=== PATIENT | male | born 1955 | race Caucasian/White ===

== ENCOUNTER → 2016-11-25 | Outpatient (CLI) | payer BC ==
[2016-11-25 07:15] LABS: Aty Lym Flag Slight; CH 32.2; CHCM 33.9; HCT 44.9 % (39.0-53.0); HDW 2.56; HGB 15.3 gm/dL (13.0-17.5); MCH 32.5 pg (25.0-35.0); MCHC 34.1 g/dL (31.0-37.0); MCV 95.4 fL (80.0-100.0); Mean Platelet Volume 7.2; RDW 13.3 % (11.5-15.5); WBC 5.7 k/uL (3.8-10.6); WBC (Perox) 5.68
[2016-11-25 07:50] LABS: ALT 76 U/L (21-72); AST 66 U/L (17-59); Alkaline Phosphatase 71 U/L (38-126); Anion Gap 10 mmol/L; Blood Urea Nitrogen 20 mg/dL (9-20); Calcium 9.6 mg/dL (8.4-10.2); Carbon Dioxide 25 mmol/L (22-30); Chloride 108 mmol/L (98-107); Glucose 94 mg/dL (74-99); Non-African American GFR(MDRD) >60 (>60 ml/min/1.73 sqM); Potassium 4.2 mmol/L (3.5-5.1); Sodium 143 mmol/L (137-145); Total Bilirubin 0.7 mg/dL (0.2-1.3); Total Protein 7.1 g/dL (6.3-8.2)
[2016-11-25 08:06] LABS: Add Differential Manual Differential
[2016-11-25 08:08] LABS: Nucleated Red Blood Cells 0 /100 WBC (0-0); Total Cells Counted 100
[2016-11-25 08:09] LABS: Manual Review Performed
[2016-11-25 08:10] LABS: RBC Morphology Normal
[2016-11-25 14:03] LABS: Hemoglobin A1C 5.6 % (4.2-6.1)
== END | disposition home or self-care (01) ==
LOC: LABWHC1 06:35
PROVIDERS: ATTEND Family Medicine
DX: R73.01 Impaired fasting glucose (principal); R94.5 Abnormal results of liver function studies; I35.8 Other nonrheumatic aortic valve disorders
CPT/HCPCS: 36415; 80053; 83036; 85025

== ENCOUNTER → 2017-11-03 | Outpatient (CLI) | payer BC ==
[2017-11-03 07:54] LABS: Cholesterol 147 mg/dL (<200); HDL Cholesterol 59 mg/dL (40-60); LDL Cholesterol,Calculated 50 mg/dL (0-99); Triglycerides 192 mg/dL (<150)
== END | disposition home or self-care (01) ==
LOC: LABWHC1 06:35
PROVIDERS: ATTEND Family Medicine
DX: E78.2 Mixed hyperlipidemia (principal); M15.8 Other polyosteoarthritis
CPT/HCPCS: 36415; 80061

== ENCOUNTER → 2018-06-08 | Outpatient (CLI) | payer BC ==
[2018-06-08 08:02] LABS: Basophils % (A) 1 %; Eosinophils # (A) 0.1 k/uL (0-0.7); Eosinophils % (A) 2 %; HCT 46.3 % (39.0-53.0); HGB 15.7 gm/dL (13.0-17.5); Lymphocytes # (A) 1.8 k/uL (1.0-4.8); Lymphocytes % (A) 37 %; MCH 31.9 pg (25.0-35.0); MCV 93.7 fL (80.0-100.0); Mean Platelet Volume 7.5; Monocytes # (A) 0.4 k/uL (0-1.0); Monocytes % (A) 9 %; Neutrophils # (A) 2.4 k/uL (1.3-7.7); Neutrophils % (A) 48 %; Platelet Count 148 k/uL (150-450); RBC 4.93 m/uL (4.30-5.90)
[2018-06-08 12:07] LABS: Albumin 4.3 g/dL (3.80-4.90); Albumin/Globulin Ratio 2.26 (1.20-2.10); Anion Gap 6.1 mmol/L (4.00-12.00); Calcium 9.6 mg/dL (8.7-10.3); Carbon Dioxide 26.9 mmol/L (21.6-31.8); Globulin 1.9 g/dL (2.1-3.7); LDL Cholesterol,Calculated 48.6 mg/dL (0.0-131.0); Potassium 4.2 mmol/L (3.5-5.5); Total Bilirubin 0.8 mg/dL (0.2-1.2); Total Protein 6.2 g/dL (6.2-8.2); VLDL Calculation 42.4 mg/dL (5.00-40.00)
[2018-06-08 12:14] LABS: T4, Free (Free Thyroxine) 1.2 ng/dL (0.80-1.80)
== END | disposition home or self-care (01) ==
LOC: LABWHC1 06:37
PROVIDERS: ATTEND Family Medicine
DX: Z00.00 Encounter for general adult medical examination without abnormal findings (principal); E78.5 Hyperlipidemia, unspecified; I10 Essential (primary) hypertension; Z79.899 Other long term (current) drug therapy
CPT/HCPCS: 36415; 80053; 80061; 84153; 84439; 84443; 85025

== ENCOUNTER → 2018-07-19 | Outpatient (CLI) | payer BC ==
[2018-07-19 20:29] LABS: ALT 121 U/L (10-49); AST 59 U/L (14-35); Alkaline Phosphatase 57 U/L (41-126); Bilirubin, Conjugated <0.20 mg/dL (0.20-0.40); Total Bilirubin 0.4 mg/dL (0.2-1.2); Total Protein 6.4 g/dL (6.2-8.2)
== END | disposition home or self-care (01) ==
LOC: LABWHC1 13:06
PROVIDERS: ATTEND Family Medicine
DX: R94.5 Abnormal results of liver function studies (principal)
CPT/HCPCS: 36415; 80076

== ENCOUNTER → 2018-09-15 | Outpatient (CLI) | payer BC ==
--- NOTE | 2018-09-15 08:14 | US ---
EXAMINATION TYPE: US liver DATE OF EXAM: 09/15/2018 COMPARISON: CT 03/04/2016 CLINICAL HISTORY: R94.5 Abnormal Liver Function Tests. abn labs. Patient states he sometimes have RU Q pain. NPO. EXAM MEASUREMENTS: Liver Length: 15.9 cm Gallbladder Wall: 0.2 cm CHD: 0.3 cm Right Kidney: 12.1 x 4.9 x 5.4 cm Pancreas: Obscured by bowel gas Liver: Appears coarse in appearance. Gallbladder: wnl Evidence for sonographic Pena's sign: neg CBD: Obscured by overlying bowel gas CHD: wnl Right Kidney: wnl There is no ascites. IMPRESSION: Findings could be indicative of hepatic steatosis.
== END ==
LOC: RADUSWWP 07:22
PROVIDERS: ATTEND Family Medicine
DX: R94.5 Abnormal results of liver function studies (principal)
CPT/HCPCS: 76705

== ENCOUNTER → 2018-11-30 | Outpatient (CLI) | payer BC ==
[2018-11-30 16:33] LABS: Albumin 4.4 g/dL (3.80-4.90); Albumin/Globulin Ratio 2.32 (1.60-3.17); Bilirubin, Conjugated 0.2 mg/dL (0.20-0.40); Bilirubin,Unconjugated 0.4 mg/dL; Globulin 1.9 g/dL (1.6-3.3); Total Bilirubin 0.6 mg/dL (0.3-1.2); Total Protein 6.3 g/dL (6.2-8.2)
[2018-11-30 16:54] LABS: Hepatitis B Surface AB- Quant 3.5 mIU/mL; Hepatitis C IgG Antibody Non-Reactive (Non-Reactive)
[2018-12-01 13:11] LABS: Ceruloplasmin 20.4 mg/dL (20.0-60.0)
== END | disposition home or self-care (01) ==
LOC: LABWHC1 07:31
DX: K76.0 Fatty (change of) liver, not elsewhere classified (principal)
CPT/HCPCS: 36415; 80076; 81596; 82103; 82390; 82728; 86038; 86706; 86803

== ENCOUNTER → 2019-05-23 | Outpatient (CLI) | payer BC ==
[2019-05-23 11:16] LABS: Albumin 4.4 g/dL (3.80-4.90); Albumin/Globulin Ratio 2.44 (1.60-3.17); Bilirubin, Conjugated 0.3 mg/dL (0.20-0.40); Bilirubin,Unconjugated 0.6 mg/dL; Globulin 1.8 g/dL (1.6-3.3); Total Bilirubin 0.9 mg/dL (0.3-1.2); Total Protein 6.2 g/dL (6.2-8.2)
== END | disposition home or self-care (01) ==
LOC: LABWHC1 07:26
PROVIDERS: ATTEND Internal Medicine
DX: R74.8 Abnormal levels of other serum enzymes (principal)
CPT/HCPCS: 36415; 80076

== ENCOUNTER 2019-05-24 12:28 | Emergency (ER) | payer BC ==
[2019-05-24 12:39] VITALS: TEMP 98.2
[2019-05-24] MEDS ORDERED: KETOROLAC 60 MG/2 ML VIAL IM STA (14:06)
--- NOTE | 2019-05-24 15:00 | XR ---
Lumbar spine HISTORY: Pain 3 views of the lumbar spine, 3 views of the thoracic spine There is multilevel spondylosis. Loss of disc height is present at the intervertebral levels. Scleros is present in the posterior elements of the lumbar spine is compatible with facet arthropathy. Lumbar vertebral bodies show preserved height. Bone mineralization maintained. There is anterolisthesis gra de 1 L5-S1. Vacuum phenomenon present at intervertebral levels L4-5 and L5-S1. Thoracic spine shows multilevel spondylosis. Thoracic vertebral bodies show preserved height and alig nment. Some loss of disc height present at the intervertebral levels. Degenerative disc changes also noted in the cervical spine. Aorta is dense and tortuous. Impression: Degenerative disc disease, facet arthropathy, anterolisthesis grade 1 L5-S1,
--- NOTE | 2019-05-24 15:22 | ED ---
Back Pain HPI - General Chief Complaint: Back Pain/Injury Stated Complaint: back pain Time Seen by Provider: 05/24/19 12:34 Source: patient Limitations: no limitations - History of Present Illness Initial Comments: She is a 67-year-old male with past medical history of hypertension who presents emergency Department with reported low back pain. He states that on Tuesday he was lifting a heavy planter when he developed mid to low back pain and felt a pop in his mid back. States the pain ran across his low back. He as been taking Tylenol at home which only mildly improves his symptoms. States the pain is worse with moving and better with rest. He denies any saddle anesthesia or bowel or bladder incontinence. No dysuria, hematuria or retention. Denies melanotic stools or hematochezia. Denies any chest pain or shortness of breath. No fevers or chills. No history of IV drug use. No weakness in his lower extremities. Denies ripping or tearing sensation. There are no other alleviating, precipitating or modifying factors - Related Data Home Medications Medication Instructions Recorded Confirmed Atorvastatin Calcium [Lipitor] 20 mg PO DAILY 03/04/16 03/04/16 Bisoprol/Hydrochlorothiazide [Ziac 1 each PO DAILY 03/04/16 03/04/16 10-6.25 MG] Naproxen 500 mg PO Q12HR 03/04/16 03/04/16 Previous Rx's Medication Instructions Recorded Hydrocodone/Acetaminophen [[place] 1 each PO Q6HR PRN #20 tab 03/04/16 5-325] Ibuprofen [Motrin] 800 mg PO Q6HR PRN #20 tab 03/04/16 Tamsulosin HCl [Flomax] 0.4 mg PO DAILY #7 cap 03/04/16 Hydrocodone/Acetaminophen [[place] 1 tab PO Q6HR PRN #12 tab 05/24/19 5-325] Ibuprofen [Motrin] 400 mg PO Q8HR PRN #30 tab 05/24/19 Allergies Allergy/AdvReac Type Severity Reaction Status Date / Time Penicillins Allergy Swelling Verified 05/24/19 12:38 Review of Systems ROS Statement: Those systems with pertinent positive or pertinent negative responses have been documented in the HPI. ROS Other: All systems not noted in ROS Statement are negative. Past Medical History Past Medical History: Hyperlipidemia, Hypertension Additional Past Medical History / Comment(s): kidney stone, hernia History of Any Multi-Drug Resistant Organisms: None Reported Past Surgical History: Orthopedic Surgery Past Psychological History: No Psychological Hx Reported Smoking Status: Never smoker Past Alcohol Use History: Occasional Past Drug Use History: None Reported General Exam Limitations: no limitations General appearance: alert, in no apparent distress Head exam: Present: atraumatic, normocephalic, normal inspection Eye exam: Present: normal appearance, PERRL, EOMI. Absent: scleral icterus, conjunctival injection, periorbital swelling ENT exam: Present: normal exam, mucous membranes moist Neck exam: Present: normal inspection. Absent: tenderness, meningismus, lymp hadenopathy Respiratory exam: Present: normal lung sounds bilaterally. Absent: respiratory distress, wheezes, rales, rhonchi, stridor Cardiovascular Exam: Present: regular rate, normal rhythm, normal heart sounds. Absent: systolic murmur, diastolic murmur, rubs, gallop, clicks GI/Abdominal exam: Present: soft, normal bowel sounds. Absent: distended, tenderness, guarding, rebound, rigid Extremities exam: Present: normal inspection, full ROM (in all 4 extremities), normal capillary refill. Absent: tenderness, pedal edema, joint swelling, calf tenderness Back exam: Present: tenderness (T10-L2 tender to palpate the paraspinal muscles. No spinous process tenderness. Reflexes in the lower extremities intact. ) Neurological exam: Present: alert, oriented X3, CN II-XII intact Psychiatric exam: Present: normal affect, normal mood Skin exam: Present: warm, dry, intact, normal color. Absent: rash Course Vital Signs 05/24/19 05/24/19 12:36 15:25 Temperature 98.2 F 98.2 F Pulse Rate 59 L 53 L Respiratory 20 18 Rate Blood Pressure 154/87 122/83 O2 Sat by Pulse 99 98 Oximetry Medical Decision Making - Medical Decision Making Upon arrival the patient was placed in room 23. I did discuss diagnosis, differential and treatment options. The patient has no concerning signs for cauda equina. No history of cancer. I did recommend x-ray of the patient's thoracic and lumbar spine. I did provide him with a shot of Toradol IM. Her demonstrates general disc disease with facet arthropathy and anterior listhesis grade 1 L5-S1. I reevaluated the patient and he does have improvement in his pain with the Toradol. I did recommend follow-up with his primary care physician. I will provide the patient with prescription for Motrin and [place]. He does sign an opioids start talking form. Side effect profile is discussed. He is to follow-up with his primary care physician in 2-4 days. I also discussed return parameters. Patient was in agreement with the treatment plan and was discharged home in stable condition Disposition Clinical Impression: Back pain Disposition: HOME SELF-CARE Condition: Stable Instructions (If sedation given, give patient instructions): Acute Low Back Pain (ED) Additional Instructions: Please follow up with your primary care doctor in 2-4 days. Return to the emergency room for any new worsening symptoms Prescriptions: Ibuprofen [Motrin] 400 mg PO Q8HR PRN #30 tab PRN Reason: Pain Hydrocodone/Acetaminophen [[place] 5-325] 1 tab PO Q6HR PRN #12 tab PRN Reason: Pain Is patient prescribed a controlled substance at d/c from ED?: Yes When asked, does pt state using other controlled substances?: No If prescribed controlled substance>3 days was MAPS reviewed?: Prescribed <3 Days If opioid is for acute pain is fill amount 7 days or less?: Yes If Rx opioid, was Start Talking consent form obtained?: Yes Referrals: Gurwinder Petty MD [Primary Care Provider] - 1-2 days Time of Disposition: 15:22
[2019-05-24 15:30] VITALS: BP 122/83; PULSE 53; RESP 18
== END 2019-05-24 15:25 | disposition home or self-care (01) ==
LOC: EC 12:28
DX: M54.5 Low back pain (principal); M54.6 Pain in thoracic spine; M51.37 Other intervertebral disc degeneration, lumbosacral region; M43.17 Spondylolisthesis, lumbosacral region; M46.97 Unspecified inflammatory spondylopathy, lumbosacral region; E78.5 Hyperlipidemia, unspecified; I10 Essential (primary) hypertension; Z88.0 Allergy status to penicillin; Z79.1 Long term (current) use of non-steroidal anti-inflammatories (NSAID); Z79.899 Other long term (current) drug therapy; X50.0XXA Overexertion from strenuous movement or load, initial encounter
CPT/HCPCS: 99283; 96372; 72072; 72100; J1885

== ENCOUNTER → 2019-06-12 | Outpatient (CLI) | payer BC ==
[2019-06-12 12:32] LABS: Basophils # (A) 0.1 k/uL (0-0.2); Basophils % (A) 0 %; Eosinophils # (A) 0.1 k/uL (0-0.7); Eosinophils % (A) 1 %; HGB 15.9 gm/dL (13.0-17.5); Lymphocytes # (A) 2.6 k/uL (1.0-4.8); Lymphocytes % (A) 25 %; MCH 31.5 pg (25.0-35.0); MCHC 33.8 g/dL (31.0-37.0); MCV 92.9 fL (80.0-100.0); Mean Platelet Volume 7.1; Monocytes # (A) 0.7 k/uL (0-1.0); Monocytes % (A) 7 %; Neutrophils # (A) 6.7 k/uL (1.3-7.7); Neutrophils % (A) 65 %; Platelet Count 202 k/uL (150-450); RBC 5.05 m/uL (4.30-5.90); RDW 13.5 % (11.5-15.5); WBC 10.4 k/uL (3.8-10.6)
[2019-06-12 15:40] LABS: Protein, Total 6.1 g/dL (6.2-8.2)
[2019-06-14 09:24] LABS: Albumin 3.72 g/dL (3.80-4.90); Gamma Globulin 0.6 g/dL (0.70-1.50)
== END | disposition home or self-care (01) ==
LOC: LABWHC1 11:38
PROVIDERS: ATTEND Physical Medicine & Rehabilitation
DX: M54.5 Low back pain (principal); M51.36 Other intervertebral disc degeneration, lumbar region; M47.817 Spondylosis without myelopathy or radiculopathy, lumbosacral region
CPT/HCPCS: 36415; 84165; 85025

== ENCOUNTER → 2020-05-14 | Outpatient (CLI) | payer BC ==
[2020-05-14 08:42] LABS: Basophils % (A) 1 %; Eosinophils # (A) 0.1 k/uL (0-0.7); Eosinophils % (A) 1 %; HCT 44.5 % (39.0-53.0); HGB 14.8 gm/dL (13.0-17.5); Lymphocytes # (A) 2.3 k/uL (1.0-4.8); Lymphocytes % (A) 37 %; MCH 30.3 pg (25.0-35.0); MCHC 33.2 g/dL (31.0-37.0); MCV 91.3 fL (80.0-100.0); Mean Platelet Volume 7.3; Monocytes # (A) 0.5 k/uL (0-1.0); Monocytes % (A) 9 %; Neutrophils % (A) 49 %; Platelet Count 189 k/uL (150-450); RBC 4.87 m/uL (4.30-5.90); RDW 13.6 % (11.5-15.5); WBC 6.2 k/uL (3.8-10.6)
[2020-05-14 15:09] LABS: African American GFR (CKD) 109.4 (60.0-200.0); Albumin 4.2 g/dL (3.80-4.90); Albumin/Globulin Ratio 2.21 (1.60-3.17); Anion Gap 7.4 mmol/L (4.00-12.00); Carbon Dioxide 26.6 mmol/L (21.6-31.8); Globulin 1.9 g/dL (1.6-3.3); Non-African American GFR(CKD) 94.4 (60.0-200.0); Potassium 3.9 mmol/L (3.5-5.5); Total Bilirubin 0.6 mg/dL (0.2-1.2); Total Protein 6.1 g/dL (6.2-8.2)
== END | disposition home or self-care (01) ==
LOC: LABWHC1 07:17
PROVIDERS: ATTEND Internal Medicine
DX: K76.0 Fatty (change of) liver, not elsewhere classified (principal)
CPT/HCPCS: 36415; 80053; 85025

== ENCOUNTER → 2020-11-11 | Outpatient (CLI) | payer BC ==
[2020-11-11 11:19] LABS: Basophils # (A) 0.04 X 10*3/uL (0.00-0.10); Basophils % (A) 0.7 %; Eosinophils # (A) 0.08 X 10*3/uL (0.04-0.35); Eosinophils % (A) 1.3 %; HCT 44.3 % (39.6-50.0); HGB 14.8 g/dL (13.0-17.0); Lymphocytes % (A) 29.5 %; MCH 30.7 pg (27.0-32.0); MCHC 33.4 g/dL (32.0-37.0); MCV 91.9 fL (80.0-97.0); Mean Platelet Volume 10.4 fL (9.5-12.2); Monocytes # (A) 0.68 X 10*3/uL (0.20-1.00); Monocytes % (A) 11.1 %; Neutrophils # (A) 3.48 X 10*3/uL (1.80-7.70); Neutrophils % (A) 57.1 %; Platelet Count 198 X 10*3/uL (140-440); RBC 4.82 X 10*6/uL (4.40-5.60); RDW 13.2 % (11.5-14.5)
[2020-11-11 12:08] LABS: Erythrocyte Sedimentation Rate 7 mm/Hr (0-20)
[2020-11-11 20:18] LABS: ALT 44 U/L (10-49); AST 30 U/L (14-35); African American GFR (CKD) 109.4 (60.0-200.0); Albumin/Globulin Ratio 2.25 (1.60-3.17); Alkaline Phosphatase 84 U/L (41-126); BUN/Creat Ratio 13.75 Ratio (12.00-20.00); C Reactive Protein <0.4 mg/dL (0.0-0.8); Calcium 9.7 mg/dL (8.7-10.3); Carbon Dioxide 26.3 mmol/L (21.6-31.8); Chloride 108 mmol/L (96-109); Chol/HDL Ratio 4.24; Cholesterol 140 mg/dL (0-200); Glucose 136 mg/dL (70-110); LDL Cholesterol,Calculated 83.2 mg/dL (0.0-131.0); Non-African American GFR(CKD) 94.4 (60.0-200.0); Potassium 4.1 mmol/L (3.5-5.5); Prostate Specific Antigen 2.5 ng/mL (0.0-4.5); Rheumatoid Factor, Qnt 6 IU/mL (0-15); Sodium 143 mmol/L (135-145); Total Bilirubin 1.4 mg/dL (0.3-1.2); Total Protein 6.5 g/dL (6.2-8.2)
== END | disposition home or self-care (01) ==
LOC: LABWHC1 07:07
PROVIDERS: ATTEND Family Medicine
DX: Z00.00 Encounter for general adult medical examination without abnormal findings (principal); M15.8 Other polyosteoarthritis
CPT/HCPCS: 36415; 80053; 80061; 84153; 84443; 85025; 85652; 86038; 86140; 86431

== ENCOUNTER → 2021-05-14 | Outpatient (CLI) | payer MEDICARE, BC ==
[2021-05-14 11:24] LABS: Basophils # (A) 0.06 X 10*3/uL (0.00-0.10); Basophils % (A) 0.9 %; Eosinophils # (A) 0.16 X 10*3/uL (0.04-0.35); Eosinophils % (A) 2.4 %; HCT 46.3 % (39.6-50.0); HGB 15.4 g/dL (13.0-17.0); Lymphocytes # (A) 2.11 X 10*3/uL (0.90-5.00); Lymphocytes % (A) 31.1 %; MCH 30.5 pg (27.0-32.0); MCHC 33.3 g/dL (32.0-37.0); MCV 91.7 fL (80.0-97.0); Mean Platelet Volume 10.3 fL (9.5-12.2); Monocytes # (A) 0.71 X 10*3/uL (0.20-1.00); Monocytes % (A) 10.5 %; Neutrophils # (A) 3.72 X 10*3/uL (1.80-7.70); Neutrophils % (A) 54.8 %; Platelet Count 204 X 10*3/uL (140-440); RBC 5.05 X 10*6/uL (4.40-5.60); RDW 13.4 % (11.5-14.5); WBC 6.78 X 10*3/uL (4.50-10.00)
[2021-05-14 14:00] LABS: African American GFR (CKD) 108.6 (60.0-200.0); Albumin 4.3 g/dL (3.8-4.9); Albumin/Globulin Ratio 1.87 (1.60-3.17); Anion Gap 11.4 mmol/L (4.00-12.00); BUN/Creat Ratio 14.5 Ratio (12.00-20.00); Blood Urea Nitrogen 11.6 mg/dL (9.0-27.0); Calcium 10.1 mg/dL (8.7-10.3); Carbon Dioxide 23.6 mmol/L (21.6-31.8); Globulin 2.3 g/dL (1.6-3.3); Non-African American GFR(CKD) 93.7 (60.0-200.0); Potassium 4.8 mmol/L (3.5-5.5); Total Bilirubin 0.9 mg/dL (0.30-1.20); Total Protein 6.6 g/dL (6.2-8.2)
== END | disposition home or self-care (01) ==
LOC: LABWHC1 07:18
PROVIDERS: ATTEND Internal Medicine
DX: K76.0 Fatty (change of) liver, not elsewhere classified (principal)
CPT/HCPCS: 36415; 80053; 85025

== ENCOUNTER → 2021-09-23 | Outpatient (CLI) | payer MEDICARE, BC ==
[2021-09-23 13:59] LABS: Basophils # (A) 0.04 X 10*3/uL (0.00-0.10); Basophils % (A) 0.5 %; Eosinophils # (A) 0.11 X 10*3/uL (0.04-0.35); Eosinophils % (A) 1.4 %; HCT 45.1 % (39.6-50.0); HGB 14.8 g/dL (13.0-17.0); Immature Grans, Automated 0.3 %; Lymphocytes # (A) 2.25 X 10*3/uL (0.90-5.00); Lymphocytes % (A) 29.3 %; MCH 30.6 pg (27.0-32.0); MCHC 32.8 g/dL (32.0-37.0); MCV 93.2 fL (80.0-97.0); Mean Platelet Volume 10.4 fL (9.5-12.2); Monocytes # (A) 0.83 X 10*3/uL (0.20-1.00); Monocytes % (A) 10.8 %; NRBC Per 100 WBC 0 /100 WBCS (0.0-0.0); Neutrophils # (A) 4.42 X 10*3/uL (1.80-7.70); Neutrophils % (A) 57.7 %; Platelet Count 205 X 10*3/uL (140-440); RBC 4.84 X 10*6/uL (4.40-5.60); RDW 13.3 % (11.5-14.5); WBC 7.67 X 10*3/uL (4.50-10.00)
[2021-09-23 14:24] LABS: Anion Gap 10.8 mmol/L (10.00-18.00); Carbon Dioxide 24.2 mmol/L (20.0-27.5)
== END | disposition home or self-care (01) ==
LOC: LABPAT 07:31
PROVIDERS: ATTEND Orthopaedic Surgery Hand Surgery
DX: G56.01 Carpal tunnel syndrome, right upper limb (principal)
CPT/HCPCS: 36415; 80051; 85025; 93005

== ENCOUNTER → 2021-12-02 | Outpatient (CLI) | payer MEDICARE, BC ==
[2021-12-02 14:43] LABS: Basophils # (A) 0.04 X 10*3/uL (0.00-0.10); Basophils % (A) 0.8 %; Eosinophils # (A) 0.09 X 10*3/uL (0.04-0.35); Eosinophils % (A) 1.7 %; HCT 42.8 % (39.6-50.0); HGB 14.1 g/dL (13.0-17.0); Immature Grans, Automated 0.2 %; Lymphocytes # (A) 1.62 X 10*3/uL (0.90-5.00); Lymphocytes % (A) 31.1 %; MCH 30.8 pg (27.0-32.0); MCHC 32.9 g/dL (32.0-37.0); MCV 93.4 fL (80.0-97.0); Mean Platelet Volume 10.5 fL (9.5-12.2); Monocytes # (A) 0.56 X 10*3/uL (0.20-1.00); Monocytes % (A) 10.7 %; NRBC Per 100 WBC 0 /100 WBCS (0.0-0.0); Neutrophils # (A) 2.89 X 10*3/uL (1.80-7.70); Neutrophils % (A) 55.5 %; Platelet Count 201 X 10*3/uL (140-440); RBC 4.58 X 10*6/uL (4.40-5.60); RDW 13.6 % (11.5-14.5); WBC 5.21 X 10*3/uL (4.50-10.00)
[2021-12-02 14:52] LABS: ALT 43 U/L (10-49); AST 26 U/L (14-35); African American GFR (CKD) 110.4 (60.0-200.0); Albumin 4.3 g/dL (3.8-4.9); Albumin/Globulin Ratio 2.13 (1.60-3.17); Alkaline Phosphatase 64 U/L (41-126); BUN/Creat Ratio 12.36 Ratio (12.00-20.00); Blood Urea Nitrogen 9.5 mg/dL (9.0-27.0); Calcium 9.7 mg/dL (8.7-10.3); Carbon Dioxide 23.3 mmol/L (20.0-27.5); Chloride 109 mmol/L (96-109); Chol/HDL Ratio 3.25 Ratio; Glucose 112 mg/dL (70-110); LDL Cholesterol,Calculated 72.2 mg/dL (0.0-131.0); Non-African American GFR(CKD) 95.2 (60.0-200.0); Potassium 4.4 mmol/L (3.5-5.5); Sodium 143 mmol/L (135-145); Total Protein 6.3 g/dL (6.2-8.2); VLDL Calculation 17.12 mg/dL (5.00-40.00)
== END | disposition home or self-care (01) ==
LOC: LABWHC1 08:18
PROVIDERS: ATTEND Family Medicine
DX: Z00.00 Encounter for general adult medical examination without abnormal findings (principal); Z12.5 Encounter for screening for malignant neoplasm of prostate; I10 Essential (primary) hypertension; E78.2 Mixed hyperlipidemia; R00.0 Tachycardia, unspecified
CPT/HCPCS: 36415; 80053; 80061; 84153; 84443; 85025

== ENCOUNTER 2023-09-25 06:02 | Emergency (ER) | payer MEDICARE, BC ==
[2023-09-25 06:35] VITALS: TEMP 98.3
--- NOTE | 2023-09-25 06:36 | ED ---
Abdominal Pain HPI - General Chief Complaint: Abdominal Pain Stated Complaint: head ringing abd pain blood in urine Time Seen by Provider: 09/25/23 06:15 Source: patient, RN notes reviewed Mode of arrival: ambulatory Limitations: no limitations - History of Present Illness Initial Comments: This is a 68-year-old male who presents to the emergency department for abdominal pain. States that this is in the right lower quadrant and started early this morning. Also states that he may have blood in his urine. Denies any radiation of pain into the back or nausea/vomiting. Reports passing a 9mm kidney stone several years ago. Additionally, over the last week he has had ringing in both of his ears and states that his head feels full, but is not painful. Denies any visual changes. Reports mild muffled hearing, but denies any ear pain. Denies any dizziness or difficulty with ambulation. MD Complaint: abdominal pain - Related Data Home Medications Medication Instructions Recorded Confirmed Atorvastatin Calcium [Lipitor] 80 mg PO DAILY 03/04/16 10/07/21 Bisoprolol/Hydrochlorothiazide 1 each PO DAILY 03/04/16 10/07/21 [Ziac 10-6.25 MG] Celecoxib [CeleBREX] 200 mg PO DAILY 09/30/21 10/07/21 Colchicine 0.6 mg PO DAILY 09/30/21 10/07/21 Multivitamins, Thera [Multivitamin 1 tab PO DAILY 09/30/21 10/07/21 (formulary)] [place]-3 Fatty Acids/Fish Oil [Fish 1 each PO DAILY 09/30/21 10/07/21 Oil 1,000 mg Softgel] lisinopriL [Zestril] 20 mg PO DAILY 09/30/21 10/07/21 traMADol-ACETAMINOP 37.5-325MG 1 tab PO Q6HR PRN 09/30/21 10/07/21 [Ultracet] Previous Rx's Medication Instructions Recorded Fluticasone Nasal [place] [Flonase 2 spray EA NOSTRIL DAILY #16 gm 09/25/23 Nasal [place]] Ketorolac [Toradol] 10 mg PO Q6HR PRN #15 tab 09/25/23 Sulfamethox-Tmp 800-160Mg [Bactrim 1 tab PO Q12HR 7 Days #14 tab 09/25/23 DS 800-160 mg] Tamsulosin [Flomax] 0.4 mg PO DAILY #10 cap 09/25/23 Allergies Allergy/AdvReac Type Severity Reaction Status Date / Time Penicillins Allergy Swelling Verified 09/25/23 06:13 Review of Systems ROS Statement: Those systems with pertinent positive or pertinent negative responses have been documented in the HPI. ROS Other: All systems not noted in ROS Statement are negative. Past Medical History Past Medical History: Hyperlipidemia, Hypertension, Osteoarthritis (OA), Seizure Disorder Additional Past Medical History / Comment(s): fell & hit head as 6 y.o., took seizure med for awhile, but not for several years, hx. kidney stone, umb. hernia, gout, numbness right hand, cervical problems C5-C6 History of Any Multi-Drug Resistant Organisms: None Reported Past Surgical History: Orthopedic Surgery, Tonsillectomy Additional Past Surgical History / Comment(s): hand surg related to work injury, right rotator cuff repair, colonoscopy Past Anesthesia/Blood Transfusion Reactions: No Reported Reaction Past Psychological History: No Psychological Hx Reported Smoking Status: Former smoker Past Alcohol Use History: None Reported Past Drug Use History: Marijuana - Past Family History Father Additional Family Medical History / Comment(s): of 2019 General Exam Limitations: no limitations General appearance: alert, in no apparent distress Head exam: Present: atraumatic, normocephalic, normal inspection ENT exam: Present: other (Minor fluid behind the bilateral TMs. There is no bulging or erythema.) Respiratory exam: Present: normal lung sounds bilaterally. Absent: respiratory distress, wheezes, rales, rhonchi, stridor Cardiovascular Exam: Present: regular rate, normal rhythm, normal heart sounds. Absent: systolic murmur, diastolic murmur, rubs, gallop, clicks GI/Abdominal exam: Present: soft, tenderness (RLQ), normal bowel sounds. Absent: distended Neurological exam: Present: alert, oriented X3, CN II-XII intact Psychiatric exam: Present: normal affect, normal mood Skin exam: Present: warm, dry, intact, normal color. Absent: rash Course Vital Signs 09/25/23 09/25/23 09/25/23 06:10 06:58 08:06 Temperature 98.3 F Pulse Rate 89 53 L 58 L Respiratory 18 16 16 Rate Blood Pressure 159/105 149/72 134/75 O2 Sat by Pulse 98 100 98 Oximetry 03/24/24 09:30 Temperature Pulse Rate 75 Respiratory 16 Rate Blood Pressure 136/65 O2 Sat by Pulse 98 Oximetry Medical Decision Making - Medical Decision Making This is a 68 year old male who presents to the emergency department for abdominal pain. Was pt. sent in by a medical professional or institution? @ -No Did you speak to anyone other than the patient for history? @ -No Did you review nursing and triage notes? @ -Yes, and I agree, it is accurate with regards to the patient's symptoms. Were old charts reviewed? @ -No Differential Diagnosis? @ -Differential Abdominal Pain Men: Appendicitis, cholecystitis, diverticulosis, ischemic bowel, pancreatitis, hepatitis, UTI, gastroenteritis, AAA, incarcerated hernia, bowel obstruction, constipation, inflammatory bowel, hepatitis, peptic ulcer disease, splenic infarction, perforated viscus, testicular torsion, this is not meant to be an all-inclusive list EKG interpreted by me (3pts min.)? @ -Not obtained X-rays interpreted by me (1pt min.)? @ -Not obtained CT interpreted by me (1pt min.)? @ -CT scan of the abdomen and pelvis obtained. My interpretation identifies a right ureteral calculus. U/S interpreted by me (1pt. min.)? @ -Not obtained What testing was considered but not performed? (CT, X-rays, U/S, labs)? Why? @ -None What meds were considered but not given? Why? @ -None Did you discuss the management of the patient with other professionals? @ -No Did you reconcile home meds? @ -No Was smoking cessation discussed for >3mins.? @ -No Was critical care preformed (if so, how long)? @ -No Were there social determinants of health that impacted care today? How? (Homelessness, low income, unemployed, alcoholism, drug addiction, transportation, low edu. Level, literacy, decrease access to med. care, nursing home, rehab)? @ -No Was there de-escalation of care discussed even if they declined? (Discuss DNR or withdrawal of care, Hospice)? @ -No What co-morbidities impacted this encounter? (DM, HTN, Smoking, COPD, CAD, Cancer, CVA, Hep., AIDS, mental health diagnosis, sleep apnea, morbid obesity)? @ -HLD, HTN Was patient admitted / discharged? @ -Discharged. Lab work unremarkable. COVID, influenza, and RSV testing were negative. Urinalysis demonstrates blood with rare bacteria and some elevated white blood cells. Urine sent for culture. CT scan of the abdomen and pelvis obtained demonstrating a 5.3 mm obstructing calculus in the right UVJ resulting in moderate right hydronephrosis and hydroureter. Pain was well-controlled in the emergency department. Discussed with the patient that the cause of his tinnitus is not entirely clear. Denies any aspirin use. He did appear to have some fluid behind his TMs on exam. However, there was no bulging or erythema to suggest infection, and he denied any ear pain. Discussed the possibility of eustachian tube dysfunction contributing to tinnitus. He was given a prescription for Flonase nasal spray to see if that offers any benefit to his symptoms, however I otherwise advised he discuss this concern with his primary care provider. Prescription for Toradol and Flomax provided with dosing instructions reviewed for the ureter stone. He was also started on Bactrim for possible associated infection. Information for urology follow-up provided. He is advised to contact them for a follow-up appointment. Patient discharged home in stable condition. Undiagnosed new problem with uncertain prognosis? @ -None Drug Therapy requiring intensive monitoring for toxicity (Heparin, Nitro, Insulin, Cardizem)? @ -None Were any procedures done? @ -None Diagnosis/symptom? @ -Ureteral calclulus, hydronephrosis, tinnitus Acute, or Chronic, or Acute on Chronic? @ -Acute Uncomplicated (without systemic symptoms) or Complicated (systemic symptoms)? @ -Uncomplicated Side effects of treatment? @ -None Exacerbation, Progression, or Severe Exacerbation] @ -Not applicable Poses a threat to life or bodily function? @ -No Return precautions reviewed in depth, the patient is instructed to return to the emergency department with any new, worsening, or concerning symptoms. Patient verbalized understanding. This case was discussed in detail with the attending ED physician, Dr. Padilla. Presentation, findings, and treatment plan discussed in detail as well. - Lab Data Result diagrams: 09/25/23 06:46 09/25/23 06:46 Lab Results 09/25/23 09/25/23 09/25/23 Range/Units 06:30 06:46 06:46 WBC 7.6 (3.8-10.6) k/uL RBC 5.14 (4.30-5.90) m/uL Hgb 15.8 (13.0-17.5) gm/dL Hct 48.0 (39.0-53.0) % MCV 93.4 (80.0-100.0) fL MCH 30.7 (25.0-35.0) pg MCHC 32.9 (31.0-37.0) g/dL RDW 13.0 (11.5-15.5) % Plt Count 205 (150-450) k/uL MPV 7.6 Neutrophils % 59 % Lymphocytes % 29 % Monocytes % 7 % Eosinophils % 1 % Basophils % 1 % Neutrophils # 4.4 (1.3-7.7) k/uL Lymphocytes # 2.2 (1.0-4.8) k/uL Monocytes # 0.6 (0-1.0) k/uL Eosinophils # 0.1 (0-0.7) k/uL Basophils # 0.1 (0-0.2) k/uL Sodium 140 (137-145) mmol/L Potassium 4.0 (3.5-5.1) mmol/L Chloride 110 H (98-107) mmol/L Carbon Dioxide 18 L (22-30) mmol/L Anion Gap 12 mmol/L BUN 11 (9-20) mg/dL Creatinine 0.82 (0.66-1.25) mg/dL Est GFR (CKD-EPI)AfAm >90 (>60 ml/min/1.73 sqM) Est GFR (CKD-EPI)NonAf >90 (>60 ml/min/1.73 sqM) Glucose 136 H (74-99) mg/dL Plasma Lactic Acid James (0.7-2.0) mmol/L Calcium 10.1 (8.4-10.2) mg/dL Total Bilirubin 1.4 H (0.2-1.3) mg/dL AST 44 (17-59) U/L ALT 66 H (4-49) U/L Alkaline Phosphatase 78 (38-126) U/L Total Protein 7.0 (6.3-8.2) g/dL Albumin 4.4 (3.5-5.0) g/dL Amylase 80 (30-110) U/L Lipase 252 (23-300) U/L Urine Color Urine Appearance (Clear) Urine pH (5.0-8.0) Ur Specific [place] (1.001-1.035) Urine Protein (Negative) Urine Glucose (UA) (Negative) Urine Ketones (Negative) Urine Blood (Negative) Urine Nitrite (Negative) Urine Bilirubin (Negative) Urine Urobilinogen (<2.0) mg/dL Ur Leukocyte Esterase (Negative) Urine RBC (0-5) /hpf Urine WBC (0-5) /hpf Urine Bacteria (None) /hpf Urine Mucus (None) /hpf Influenza Type A (PCR) Not Detected (Not Detectd) Influenza Type B (PCR) Not Detected (Not Detectd) RSV (PCR) Not Detected (Not Detectd) SARS-CoV-2 (PCR) Not Detected (Not Detectd) 09/25/23 09/25/23 Range/Units 06:46 07:52 WBC (3.8-10.6) k/uL RBC (4.30-5.90) m/uL Hgb (13.0-17.5) gm/dL Hct (39.0-53.0) % MCV (80.0-100.0) fL MCH (25.0-35.0) pg MCHC (31.0-37.0) g/dL RDW (11.5-15.5) % Plt Count (150-450) k/uL MPV Neutrophils % % Lymphocytes % % Monocytes % % Eosinophils % % Basophils % % Neutrophils # (1.3-7.7) k/uL Lymphocytes # (1.0-4.8) k/uL Monocytes # (0-1.0) k/uL Eosinophils # (0-0.7) k/uL Basophils # (0-0.2) k/uL Sodium (137-145) mmol/L Potassium (3.5-5.1) mmol/L Chloride (98-107) mmol/L Carbon Dioxide (22-30) mmol/L Anion Gap mmol/L BUN (9-20) mg/dL Creatinine (0.66-1.25) mg/dL Est GFR (CKD-EPI)AfAm (>60 ml/min/1.73 sqM) Est GFR (CKD-EPI)NonAf (>60 ml/min/1.73 sqM) Glucose (74-99) mg/dL Plasma Lactic Acid James 1.5 (0.7-2.0) mmol/L Calcium (8.4-10.2) mg/dL Total Bilirubin (0.2-1.3) mg/dL AST (17-59) U/L ALT (4-49) U/L Alkaline Phosphatase (38-126) U/L Total Protein (6.3-8.2) g/dL Albumin (3.5-5.0) g/dL Amylase (30-110) U/L Lipase (23-300) U/L Urine Color Colorless Urine Appearance Clear (Clear) Urine pH 6.5 (5.0-8.0) Ur Specific [place] 1.032 (1.001-1.035) Urine Protein Negative (Negative) Urine Glucose (UA) Negative (Negative) Urine Ketones Negative (Negative) Urine Blood Large H (Negative) Urine Nitrite Negative (Negative) Urine Bilirubin Negative (Negative) Urine Urobilinogen <2.0 (<2.0) mg/dL Ur Leukocyte Esterase Negative (Negative) Urine RBC >182 H (0-5) /hpf Urine WBC 15 H (0-5) /hpf Urine Bacteria Rare H (None) /hpf Urine Mucus Rare H (None) /hpf Influenza Type A (PCR) (Not Detectd) Influenza Type B (PCR) (Not Detectd) RSV (PCR) (Not Detectd) SARS-CoV-2 (PCR) (Not Detectd) - Radiology Data Radiology results: report reviewed, image reviewed Disposition Clinical Impression: Right ureteral calculus, Tinnitus, Hydronephrosis Disposition: HOME SELF-CARE Instructions (If sedation given, give patient instructions): Renal Colic (ED), Tinnitus (ED), Ureteral Stones (ED) Additional Instructions: Return to the emergency department with any new, worsening, or concerning symptoms. Take the Toradol with Tylenol as needed for pain relief. If you choose to take the Toradol, do not take any other anti-inflammatories such as ibuprofen, take one or the other. Take the Flomax daily until you pass the kidney stone. Take the antibiotic as prescribed for 7 days. Use the Flonase nasal spray as 1-2 sprays in each nostril daily. Follow up with your primary care provider in 1-2 days. Contact urology as listed below for a follow up appointment regarding the kidney stone. Prescriptions: Sulfamethox-Tmp 800-160Mg [Bactrim DS 800-160 mg] 1 tab PO Q12HR 7 Days #14 tab Tamsulosin [Flomax] 0.4 mg PO DAILY #10 cap Fluticasone Nasal [place] [Flonase Nasal [place]] 2 spray EA NOSTRIL DAILY #16 gm Ketorolac [Toradol] 10 mg PO Q6HR PRN #15 tab PRN Reason: Pain Is patient prescribed a controlled substance at d/c from ED?: No Referrals: Gurwinder Petty MD [Primary Care Provider] - 1-2 days Mazin Barrios MD [STAFF PHYSICIAN] - 1-2 days Time of Disposition: 09:10
[2023-09-25] MEDS: MORPHINE SULFATE 2 MG/ML SYRINGE IVP STA (06:41)
[2023-09-25] MEDS: SODIUM CHLORIDE 0.9% 1,000 ML IV STA (06:42)
[2023-09-25] MEDS: KETOROLAC 15 MG/ML 1 ML VIAL IVP STA (06:45)
[2023-09-25 07:01] LABS: Basophils # (A) 0.1 k/uL (0-0.2); Basophils % (A) 1 %; Eosinophils # (A) 0.1 k/uL (0-0.7); Eosinophils % (A) 1 %; HGB 15.8 gm/dL (13.0-17.5); Lymphocytes # (A) 2.2 k/uL (1.0-4.8); Lymphocytes % (A) 29 %; MCH 30.7 pg (25.0-35.0); MCHC 32.9 g/dL (31.0-37.0); MCV 93.4 fL (80.0-100.0); Mean Platelet Volume 7.6; Monocytes # (A) 0.6 k/uL (0-1.0); Monocytes % (A) 7 %; Neutrophils # (A) 4.4 k/uL (1.3-7.7); Neutrophils % (A) 59 %; Platelet Count 205 k/uL (150-450); RBC 5.14 m/uL (4.30-5.90); WBC 7.6 k/uL (3.8-10.6)
[2023-09-25 07:17] LABS: ALT 66 U/L (4-49); AST 44 U/L (17-59); African American GFR (CKD) >90 (>60 ml/min/1.73 sqM); Albumin 4.4 g/dL (3.5-5.0); Alkaline Phosphatase 78 U/L (38-126); Amylase 80 U/L (30-110); Anion Gap 12 mmol/L; Blood Urea Nitrogen 11 mg/dL (9-20); Calcium 10.1 mg/dL (8.4-10.2); Carbon Dioxide 18 mmol/L (22-30); Chloride 110 mmol/L (98-107); Glucose 136 mg/dL (74-99); Lipase 252 U/L (23-300); Non-African American GFR(CKD) >90 (>60 ml/min/1.73 sqM); Sodium 140 mmol/L (137-145); Total Bilirubin 1.4 mg/dL (0.2-1.3)
[2023-09-25 07:47] VITALS: RESP 16
--- NOTE | 2023-09-25 07:57 | CT ---
EXAMINATION TYPE: CT abdomen pelvis w con DATE OF EXAM: 09/25/2023 COMPARISON: 03/04/2016 HISTORY: severe abdominal pain xfew hours CT DLP: 1266.7 mGycm Automated exposure control for dose reduction was used. TECHNIQUE: Helical acquisition of images was performed from the lung bases through the pelvis. CONTRAST: Performed without Oral Contrast and with IV Contrast, patient injected with 100ml mL of Isovue 300. FINDINGS: The lung bases are clear. The gallbladder is normal without distention, wall thickening, pericholecystic fluid or gallstones. T here is no biliary ductal dilatation. There is no focal mass or organomegaly involving the liver, pancreas, spleen or adrenal glands. There is moderate right hydronephrosis and hydroureter secondary to a 5.2 mm obstructing right UVJ ca lculus. There is a tiny stacy-like calcification in the right kidney. There are 4-5 nonobstructing le ft renal calcifications the largest of which is approximately 6 to 7 mm. The caliber the abdominal aorta is normal is no retroperitoneal adenopathy or hemorrhage. The bowel loops are normal in caliber and there is no evidence of dilatation or obstruction. No infla mmatory changes are identified in the bowel wall or mesentery. There is no free intraperitoneal air or fluid. No pelvic mass, free fluid, abscess or adenopathy. There is a left testicular hydrocele. There is mil d prosthetic enlargement. The osseous structures and soft tissues are intact. IMPRESSION: 1. Moderate right hydronephrosis and hydroureter to the level of the urinary bladder secondary to an obstructing 5.3 mm right UVJ calculus. 2. Bilateral renal calcifications.
[2023-09-25 08:53] LABS: Appearance,Urine Clear (Clear); Bacteria,Urine Rare /hpf; Bilirubin,Urine Negative (Negative); Blood,Urine Large (Negative); Color,Urine Colorless; Glucose,Urine (UA) Negative (Negative); Ketones,Urine Negative (Negative); Leukocyte Esterase,Urine Negative (Negative); Mucus,Urine Rare /hpf; Nitrite,Urine Negative (Negative); PH, Urine 6.5 (5.0-8.0); Protein,Urine Negative (Negative); RBC,Urine >182 /hpf (0-5); Specific Gravity,Urine 1.032 (1.001-1.035); Urobilinogen,Urine <2.0 mg/dL (<2.0); WBC,Urine 15 /hpf (0-5)
[2023-09-25 09:31] VITALS: BP 136/65; PULSE 75
== END 2023-09-25 09:30 | disposition home or self-care (01) ==
LOC: EC 06:02
DX: N13.2 Hydronephrosis with renal and ureteral calculous obstruction (principal); Z88.0 Allergy status to penicillin; Z87.891 Personal history of nicotine dependence; Z11.52 Encounter for screening for COVID-19
CPT/HCPCS: 36415; 80053; 82150; 83605; 83690; 85025; 81001; 87086; 87636; 74177; 99284; 96374; 96375; 96361; J2270; J1885; Q9967

== ENCOUNTER → 2023-10-03 | Outpatient (CLI) | payer MEDICARE, BC ==
--- NOTE | 2023-10-03 16:42 | XR ---
EXAMINATION TYPE: XR cervical spine comp DATE OF EXAM: 10/03/2023 4:34 PM CLINICAL INDICATION:Male, 68 years old with history of F40.298, OTHER SPECIFIED PHOBIA, R51.9, HEADAC HES, M54.2 NEC; PHH COMPARISON: None TECHNIQUE: The cervical spine was imaged in frontal, lateral, odontoid and bilateral oblique. FINDINGS: The osseous structures show normal alignment without evidence of an acute fracture. There are osteoph ytes noted throughout the cervical spine on the anterior and lateral aspects of the vertebral bodies. The intervertebral disk spaces are narrowed at multiple levels. Pedicles are intact. Soft tissues a re within normal limits. The odontoid appears intact. Atherosclerosis at the carotid bifurcations. IMPRESSION: 1. No fracture or dislocation. 2. Mild to moderate degenerative disc disease changes of the cervical spine.
--- NOTE | 2023-10-03 17:28 | CT ---
"EXAMINATION TYPE: CT brain wo con CT DLP: 1108.5 mGycm, Automated exposure control for dose reduction was used. DATE OF EXAM: 10/03/2023 4:49 PM COMPARISON: None. CLINICAL INDICATION:Male, 68 years old with history of F40.298, OTHER SPECIFIED PHOBIA, dizziness and head pain TECHNIQUE: Brain: Axial CT images of the brain were obtained with coronal and sagittal reformats created and rev iewed. Contrast used: None. Oral contrast used: None. FINDINGS: Brain: Extra-axial spaces: No abnormal extra-axial fluid collections. Ventricular system: Within normal limits Cerebral parenchyma: . The flowers-white junction is well differentiated. Intra-axial mass within the brainstem in the posterior inferior aleksandra/superior medulla oblongata is a 11 x 14 mm hyperdense lesion. No additional hyperdense areas to suggest hemorrhage or mass. Cerebellum: Unremarkable. Mass effect: No evidence of midline shift. Intracranial vasculature: Atherosclerotic calcifications of the intracranial vessels. Soft tissues: Normal. Calvarium/osseous structures: No depressed skull fracture. Paranasal sinuses and mastoid air cells: Mild scattered paranasal sinus disease. Visualized orbits: Orbital contents are intact. IMPRESSION: Intra-axial hyperdense lesion measuring 14 x 11 mm within the aleksandra/superior medulla oblongata further evaluation MRI head with IV contrast recommended. Findings suspicious for mass versus hemorrhage. A Yellow level critical message alert has been initiated for Gurwinder Petty MD via the [employer] | Critical Results System on 10/03/2023 5:25 PM. This message alert has been sent to Gurwinder Petty MD via the preferences provided by the clinician for the receipt of Radiology Critical Findings. [facility] ID [id number]."
== END | disposition home or self-care (01) ==
LOC: RADCTMAIN 16:11
PROVIDERS: ATTEND Family Medicine
DX: M50.30 Other cervical disc degeneration, unspecified cervical region (principal); F40.298 Other specified phobia; R51.9 Headache, unspecified; R42 Dizziness and giddiness
CPT/HCPCS: 70450; 72050

== ENCOUNTER → 2023-10-04 | Outpatient (CLI) | payer MEDICARE, BC ==
--- NOTE | 2023-10-04 11:23 | MR ---
EXAMINATION TYPE: MR brain wo/w con DATE OF EXAM: 10/04/2023 10:38 AM CLINICAL INDICATION:Male, 68 years old with history of F40.298 OTHER SPECIFIED PHOBIA; PHH, Dizziness , ringing in ears, abnormal CT. COMPARISON: CT 10/03/2023 TECHNIQUE: Multi planar, multi sequence imaging was performed through the brain including: T1, T2, In version recovery, susceptibility weighted imaging and gradient echo imaging and Diffusion weighted im aging. The patient was then given intravenous contrast and multi planar, T1 fat-saturation images wer e obtained. IV Contrast: 9 cc Gadavist FINDINGS: Redemonstration of intra-axial lesion within the inferior aleksandra/superior medulla oblongata. There is t hin rim of low T1 signal with blooming artifact on susceptibility weighted imaging. The flowers-white junctions, ventricular system, basal cisterns appear unremarkable. Diffusion-weighted imaging shows no evidence of restricted diffusion to suggest acute/subacute infarct. Intracranial ar terial flow voids are maintained. Midline structures show no abnormality. Scattered foci of high T2 s ignal intensity are seen within the periventricular white matter. The susceptibility weighted images do not reveal any evidence for micro-hemorrhage. After administration of gadolinium, no additional ab normal enhancement is seen. The bone marrow signal is within normal limits. Paranasal sinuses and mastoid air cells: No significant paranasal sinus disease. Visualized orbits: Orbital contents are intact. IMPRESSION: 1. Intra-axial lesion within the inferior aleksandra/superior medulla oblongata centrally. Blooming artifac t suggestive of calcification and/or prior hemorrhage correlating with CT imaging findings. Findings favor cavernoma. Neurosurgical consultation with Short-term follow-up in 6-12 months with MRI brain w ith IV contrast recommended. No additional evidence of intracranial mass, acute/subacute infarct, or abnormal enhancement. 2. Nonspecific white matter changes, likely related to small vessel ischemic disease.
== END | disposition home or self-care (01) ==
LOC: RADMRIMAIN 09:56
PROVIDERS: ATTEND Family Medicine
DX: F40.298 Other specified phobia (principal); R51.9 Headache, unspecified; M54.2 Cervicalgia; R90.82 White matter disease, unspecified
CPT/HCPCS: 70553; A9585

== ENCOUNTER → 2023-10-05 | Outpatient (CLI) | payer MEDICARE, BC ==
--- NOTE | 2023-10-05 18:21 | XR ---
EXAMINATION TYPE: XR KUB DATE OF EXAM: 10/05/2023 4:47 PM CLINICAL INDICATION:Male, 68 years old with history of N20.1 CALCULUS OF URETER; [facility] COMPARISON: 03/04/2016, 09/25/2023. TECHNIQUE: One radiographic view of the abdomen was obtained. FINDINGS: The bowel gas pattern is nonspecific without dilated loops of small or large bowel. There i s no evidence for organomegaly or pneumoperitoneum. The osseous structures are intact. Pelvic phleb oliths are present. Calculus seen on prior CT near the ureterovesicular junction is not well appreci ated. Fecal material and gas are demonstrated throughout the colon and rectum. IMPRESSION: 1. No definitive calculus visualized. Consider further evaluation with CT. 2. Nonspecific bowel gas pattern without radiographic evidence for acute process.
== END | disposition home or self-care (01) ==
LOC: RADXRMAIN 16:30
PROVIDERS: ATTEND Urology
DX: N20.1 Calculus of ureter (principal)
CPT/HCPCS: 74018